=== PATIENT | male | born 1990 | race Caucasian/White ===

== ENCOUNTER → 2017-10-09 | Outpatient (CLI) | payer OTHER ==
[~2017-10-09] MED LIST: CONRAY-43 43% 50ML VIAL (Q9960) As Ordered; PROHANCE 279.3MG/ML 5ML VIAL (A9576) As Ordered
== END ==
LOC: M RADPRO 06:51
DX: M25.511 Pain in right shoulder (principal); R20.2 Paresthesia of skin; M75.81 Other shoulder lesions, right shoulder; M85.611 Other cyst of bone, right shoulder
CPT/HCPCS: 23350